=== PATIENT | female | born 1945 | race Caucasian/White ===

== ENCOUNTER 2017-08-08 10:41 | Outpatient (CLI) | payer MEDICARE, BC | END 2017-08-08 10:42 | disposition home or self-care (01) | LOC: BICMAMMO 10:41 | PROVIDERS: ATTEND Internal Medicine | DX: Z12.31 Encounter for screening mammogram for malignant neoplasm of breast (principal); Z80.3 Family history of malignant neoplasm of breast | CPT/HCPCS: 77063; 77067 ==

== ENCOUNTER 2018-08-16 08:50 | Outpatient (CLI) | payer MEDICARE, BC ==
--- NOTE | 2018-08-16 16:21 | MMO ---
Bilateral MAMMO Bilat Screen [facility]. CLINICAL HISTORY: Patient is 72 years old and is seen for screening. The patient has no family history of breast cancer. The patient has no personal history of cancer. VIEWS: The views performed were: bilateral craniocaudal and bilateral mediolateral oblique. FILMS COMPARED: The present examination has been compared to prior imaging studies performed at [facility] on 06/07/2014, 06/10/2015, 07/29/2016 and 08/08/2017. This study has been interpreted with the assistance of computer-aided detection. MAMMOGRAM FINDINGS: The breasts are heterogeneously dense, which could obscure a lesion on mammography. There are benign appearing calcifications seen in both breasts. There are no suspicious masses, suspicious calcifications, or new areas of architectural distortion. IMPRESSION: THERE IS NO MAMMOGRAPHIC EVIDENCE OF MALIGNANCY. A ROUTINE FOLLOW-UP MAMMOGRAM IN 1 YEAR IS RECOMMENDED. ACR BI-RADS Category 2 - Benign finding MAMMOGRAPHY NOTE: 1. A negative mammogram report should not delay a biopsy if a dominant of clinically suspicious mass is present. 2. Approximately 10% to 15% of breast cancers are not detected by mammography. 3. Adenosis and dense breasts may obscure an underlying neoplasm.
== END 2018-08-16 08:51 | disposition home or self-care (01) ==
LOC: SCSMAMMO 08:50
PROVIDERS: ATTEND Internal Medicine
DX: Z12.31 Encounter for screening mammogram for malignant neoplasm of breast (principal)
CPT/HCPCS: 77067

== ENCOUNTER 2022-06-17 09:07 | Outpatient (CLI) | payer MEDICARE, BC | END 2022-06-17 09:08 | disposition home or self-care (01) | LOC: TBSIIMAG 09:07 | PROVIDERS: ATTEND Surgery | DX: R47.01 Aphasia (principal); G93.9 Disorder of brain, unspecified; I25.2 Old myocardial infarction | CPT/HCPCS: 70553; 82565 ==

== ENCOUNTER 2022-07-13 11:00 | Outpatient (CLI) | payer MEDICARE, BC | END 2022-07-13 11:01 | disposition home or self-care (01) | LOC: BICMAMMO 11:00 | PROVIDERS: ATTEND Internal Medicine | DX: Z12.31 Encounter for screening mammogram for malignant neoplasm of breast (principal) | CPT/HCPCS: 77063; 77067 ==